=== PATIENT | male | born 1965 | race Hispanic/Latino ===

== ENCOUNTER → 2024-06-16 | Outpatient (CLI) | payer OTHER | END | disposition home or self-care (01) | LOC: RAH 13:32 | PROVIDERS: ATTEND Physician Assistant | DX: Z13.6 Encounter for screening for cardiovascular disorders (principal) | CPT/HCPCS: 75571 ==

== ENCOUNTER → 2024-06-26 | Outpatient (CLI) | payer BC | END | disposition home or self-care (01) | LOC: RAH 14:01 | PROVIDERS: ATTEND Nurse Practitioner Family | DX: S93.492A Sprain of other ligament of left ankle, initial encounter (principal); M50.321 Other cervical disc degeneration at C4-C5 level; M50.323 Other cervical disc degeneration at C6-C7 level; M54.50 Low back pain, unspecified; M48.02 Spinal stenosis, cervical region; M43.9 Deforming dorsopathy, unspecified; X58.XXXA Exposure to other specified factors, initial encounter; Y93.89 Activity, other specified; Y92.89 Other specified places as the place of occurrence of the external cause; Y99.8 Other external cause status | CPT/HCPCS: 72141 ==

== ENCOUNTER → 2024-06-28 | Outpatient (CLI) | payer BC | END | disposition home or self-care (01) | LOC: RAH 13:40 | PROVIDERS: ATTEND Nurse Practitioner Family | DX: S93.492A Sprain of other ligament of left ankle, initial encounter (principal); M19.012 Primary osteoarthritis, left shoulder; M75.102 Unspecified rotator cuff tear or rupture of left shoulder, not specified as traumatic; M25.712 Osteophyte, left shoulder; M25.512 Pain in left shoulder; X58.XXXA Exposure to other specified factors, initial encounter; Y93.89 Activity, other specified; Y92.89 Other specified places as the place of occurrence of the external cause; Y99.8 Other external cause status | CPT/HCPCS: 73221 ==